=== PATIENT | male | born 1970 | race Caucasian/White ===

== ENCOUNTER 2018-10-31 08:15 | Emergency (ER) | payer OTHER ==
[~2018-10-31] VITALS: Ht 175.3 cm; Wt 99.8 kg
[2018-10-31] MEDS ORDERED: SODIUM CHLORIDE 0.9% 1,000 ML IV ONE (09:00)
[2018-10-31 09:32] LABS: Basophils # (auto) 0.4 uL; Basophils % (auto) 3.6 % (0.0-2.0); Eosinophils # (auto) 0.2 uL; Eosinophils % (auto) 1.7 % (0.0-7.0); Hematocrit 46.1 % (41.0-53.0); Lymphocytes # (auto) 0.9 uL; Lymphocytes % (auto) 8.9 % (10.0-50.0); Mean Corpuscular Hemoglobin 33.2 pg (28.0-32.0); Mean Corpuscular Hgb Conc. 34.7 g/dL (32.0-36.0); Mean Corpuscular Volume 95.6 fL (80.0-100.0); Monocytes # (auto) 0.7 uL; Monocytes % (auto) 7.6 % (0.0-12.0); Neutrophils # (auto) 7.6 uL; Neutrophils % (auto) 78.2 % (37.0-80.0); Platelet Count (auto) 185 10^3/uL (140-450); Red Blood Cells 4.82 10^6/uL (4.5-5.90); Red Cell Distribution Width 14.2 % (11.8-14.3); White Blood Cell 9.8 10^3/uL (4.4-10.8)
[2018-10-31 09:38] LABS: Albumin 4.2 g/dL (3.4-5.0); Calcium 8.4 mg/dL (8.5-10.1)
[2018-10-31 09:42] LABS: Bilirubin, Total 0.3 mg/dL (0.2-1.0); Total Protein 7.1 g/dL (6.4-8.2)
[2018-10-31 09:54] LABS: Potassium 2.8 mmol/L (3.5-5.1)
[2018-10-31 10:00] LABS: BUN/Creatinine Ratio 6.5
[2018-10-31] MEDS ORDERED: POTASSIUM EFFERVESENT TAB 25 MEQ PO ONE (10:00)
[2018-10-31 11:58] LABS: Urine Bacteria NONE SEEN /hpf (None Seen); Urine Blood Negative /uL (Negative); Urine Specific Gravity 1.008 (1.001-1.035); Urine WBC <1 /hpf (0 - 3)
[2018-10-31 12:41] VITALS: BP 127/88
== END 2018-10-31 13:43 | disposition home or self-care (01) ==
LOC: EDBD 08:15 → ER 08:15
DX: R55 Syncope and collapse (principal); I10 Essential (primary) hypertension; E78.5 Hyperlipidemia, unspecified
CPT/HCPCS: 36415; 70450; 72125; 80053; 81001; 82962; 84484; 85025; 93005; 94761; 96360